=== PATIENT | female | born 1990 | race Caucasian/White ===

== ENCOUNTER 2017-09-09 03:39 | Emergency (ER) | payer BC, MEDICAID ==
[~2017-09-09 03:39] MED LIST: ALBU2.5I INH; ALBU8I INH; BENZ1CAP34 PO; PRED20 PO
[2017-09-09 03:45] VITALS: BP 168/98; PULSE 108; RESP 16; TEMP 99.8; O2SAT 97
[2017-09-09] MEDS ORDERED: ALBU6.7H INH (04:56)
[2017-09-09] MEDS ORDERED: ALLE4TAB10 PO (04:56)
[2017-09-09] MEDS ORDERED: IBUPROFEN 800 MG TAB PO ONE (05:30)
[2017-09-09 06:22] VITALS: PULSE 89; TEMP 98.2; O2SAT 100
[2017-09-09] MEDS ORDERED: ZITHTAB PO (06:28)
--- NOTE | 2017-09-09 06:29 | PD ---
HPI Chief Complaint: ENT Complaint Time Seen by Provider: 05:24 Travel History International Travel<30 days: No Contact w/Intl Traveler<30days: No Traveled to known affect area: No History of Present Illness HPI .27-year-old female presents to the emergency department by private transportation for complaint of cervical lymphadenopathy and sore throat. Patient has history of asthma without recent exacerbation. Patient denies any sinus pressure or drainage. Patient denies hoarseness or stridor. Patient had no difficulty with breathing. No cough or congestion but has noted painful swallowing. Patient is unaware of any fever or chills. No other family members with similar symptoms. Patient denies other concerns or complaints. Last period was 1 week ago and normal for her and she denies . Patient is status post tubal ligation [facility] Past Medical History Narrative Medical Asthma depression and tubal ligation; no tobacco use; nursing notes reviewed Asthma: Yes Depression: Yes Diminished Hearing: No Respiratory: Yes (asthma) Tetanus Vaccination: Unknown Influenza Vaccination: No ?: Not LMP: ENDED YESTERDAY : 2 Para: 1 Past Surgical History Surgical History: No Previous Surgery Section: Yes Social History Alcohol Use: No Tobacco Use: No Substance Use: No Allergies-Medications (Allergen,Severity, Reaction): Coded Allergies: atomoxetine (Unverified Allergy, Severe, HIVES, 09/09/17) cetirizine (Unverified Allergy, Severe, HIVES, 09/09/17) penicillin G (Unverified Allergy, Severe, Hives, 09/09/17) Reported Meds & Prescriptions Reported Meds & Active Scripts Active Reported Allergy Tablets (Chlorpheniramine Maleate) 4 Mg Tab 4 Mg PO Q4H PRN Proventil Hfa 6.7 GM Inh (Albuterol Sulfate) 90 Mcg/Act Aer 1 Puff INH Q4H PRN Review of Systems Except as stated in HPI: all other systems reviewed are Neg General / Constitutional: No: Fever HENT: Positive: Sore Throat, Congestion, Masses (lymph nodes) Cardiovascular: No: Chest Pain or Discomfort Respiratory: No: Shortness of Breath Gastrointestinal: No: Nausea, Vomiting, Abdominal Pain Genitourinary: No: Flank Pain Musculoskeletal: No: Myalgias, Arthralgias Skin: No Rash Neurologic: No: Weakness Hematologic/Lymphatic: Positive: Lymph Node Enlargement Physical Exam Narrative GENERAL: Well-developed well-nourished female no acute distress no respiratory distress; no stridor or hoarseness. SKIN: Warm and dry. HEAD: Normocephalic. EYES: No scleral icterus. No injection or drainage. ENT: Mucous membranes moist airways patent erythema of the posterior pharynx no soft palate soft tissue swelling uvula is midline. NECK: Supple, trachea midline. No JVD; anterior cervical chain lymphadenopathy. Supple no nuchal rigidity no meningismus CARDIOVASCULAR: Increased regular rate and rhythm without murmurs, gallops, or rubs. RESPIRATORY: Breath sounds equal bilaterally. No accessory muscle use. GASTROINTESTINAL: Abdomen soft, non-tender, nondistended. MUSCULOSKELETAL: No cyanosis, or edema. BACK: Nontender without obvious deformity. No CVA tenderness. Data Data Last Documented VS Vital Signs Date Time Temp Pulse Resp B/P (MAP) Pulse Ox O2 Delivery O2 Flow Rate FiO2 09/09/17 03:45 99.8 108 16 168/98 (121) 97 Orders Orders Group A Rapid Strep Screen (09/09/17 05:24) Ibuprofen (Motrin) (09/09/17 05:30) Strep Culture (Group A) (09/09/17 05:35) Ed Discharge Order (09/09/17 06:21) MDM Medical Decision Making Medical Screen Exam Complete: Yes Emergency Medical Condition: Yes Medical Record Reviewed: Yes Interpretation(s) Rapid strep antigen: Negative Differential Diagnosis Pharyngitis tonsillitis viral syndrome lymphadenopathy; also to consider but no findings for peritonsillar abscess or retropharyngeal abscess lymphoma Narrative Course Patient is taking no medications for symptom relief given one-time dose of ibuprofen as well as specimen collected for rapid strep antigen Patient reports symptom improvement after ibuprofen rapid strep antigen is negative patient will be started on azithromycin and encouraged to follow-up with her primary care provider no work 1 day Diagnosis Primary Impression: Pharyngitis Additional Impression: Anterior cervical lymphadenopathy Referrals: Primary Care Physician call for appointment Patient Instructions: General Instructions Departure Forms: Tests/Procedures, Work Release Special Instructions: no work x 2 days Additional Instructions: Monitor temperature every 4 hours with monitor take acetaminophen/Tylenol every 4 hours for fever 100.4F or greater and monitor temperature every 4 hours for fever and take as needed ibuprofen/Advil/Motrin 600 mg every 6 hours as needed for fever 100.4F or greater or pain associate with inflammation Follow-up with your primary care provider Increase fluid hydration Return the emergency department for any concerns or change in condition Complete course of Zithromax as prescribed Med/Other Pt SpecificInfo: Prescription(s) given Scripts Azithromycin (Zithromax Z-Arden) 250 Mg Dspk 250 MG PO DIRECTED for Infection, #1 DSPK 0 Refills 500 MG (2 tabs) day 1, then 1 tab days 2-5. Prov: Carrie Dela Cruz MD 09/09/17 Disposition: 01 DISCHARGE HOME Condition: Stable Carrie Dela Cruz MD Sep 09, 2017 06:29
== END 2017-09-09 06:47 | disposition home or self-care (01) ==
LOC: NEPC 03:39
DX: J02.9 Acute pharyngitis, unspecified (principal); J45.909 Unspecified asthma, uncomplicated
CPT/HCPCS: 87081; 87880; 99283